=== PATIENT | female | born 1980 | race Two or more races ===

== ENCOUNTER 2024-06-19 07:58 | Inpatient (IN) | payer MEDICAID, OTHER ==
[~2024-06-19] VITALS: Ht 144.8 cm; Wt 57.6 kg
[2024-06-19 09:02] LABS: Urine Bacteria FEW /hpf (None Seen); Urine Blood Negative /uL (Negative); Urine Clarity Turbid (Clear); Urine Color Yellow (Yellow); Urine Mucus FEW (None Seen); Urine Protein, UAD 1+ (Negative); Urine Specific Gravity 1.021 (1.001-1.035); Urine Squamous Epithelial Cell MOD /hpf (<5); Urine Urobilinogen Normal (Negative); Urine WBC 20 /HPF (0-5); Urine pH 8.5 (5.0-9.0)
--- NOTE | 2024-06-19 10:12 | ED.PDOC ---
GI ASSESSMENT HPI Comments 43 y.o female presents to the ED for a chief complaint of left sided abdominal pain, nausea, vomiting and dizziness that started today. Patient reports using a weight loss injection yesterday for weight management. Patient reports abdominal pain is now radiating to her lower back and is intermittent with no alleviating factors. Patient denies any diarrhea, fever, chills, bleeding. Chief Complaint: Nausea/Vomiting Time Seen by MD: 09:34 Primary Care Provider: NONE Reviewed Notes: Nurses Notes, Medications, Allergies Allergies: Coded Allergies: NO KNOWN ALLERGIES (Unverified , 06/19/24) Information Source: Patient Mode of Arrival: Ambulatory Duration: Since onset Quality: Aching Vomitus: Hard Stool: Normal Severity: Moderate Recent: Other (weight loss injection ) Recent Hx of: None Pain Location: Diffuse Modifying Factors: Nothing Associated sign and symptoms: Nausea, Vomiting, Abdominal Pain Past Medical History PAST MEDICAL HISTORY: Denies Surgical History: Denies all surgeries BIOMETRIC SCREENER History: No Pertinent BIOMETRIC SCREENER History Family History Family History: Reviewed,noncontributory to illness Social History Smoker: Non-Smoker Alcohol: Denies ETOH Use Drugs: Denies Drug Use Lives In: Home Constitutional: denies: chills, diaphoresis, fatigue, fever, malaise, sweats, weakness, others EENTM: denies: blurred vision, double vision, ear bleeding, ear discharge, ear drainage, ear pain, ear ringing, eye pain, eye redness, hearing loss, mouth pain, mouth swelling, nasal discharge, nose bleeding, nose congestion, nose pain, photophobia, tearing, throat pain, throat swelling, voice changes, others Respiratory: denies: cough, hemoptysis, orthopnea, SOB at rest, shortness of breath, SOB with excertion, stridor, wheezing, others Cardiovascular: denies: chest pain, dizzy spells, diaphoresis, Dyspnea on exertion, edema, irregular heart beat, left arm pain, lightheadedness, palpitations, PND, syncope, others Gastrointestinal: reports: abdominal pain, nausea, vomiting; denies: abdomen distended, blood streaked bowels, constipated, diarrhea, dysphagia, difficulty swallowing, hematemesis, melena, poor appetite, poor fluid intake, rectal bleeding, rectal pain, others Genitourinary: denies: abnormal vagina bleeding, burning, dyspareunia, dysuria, flank pain, frequency, hematuria, incontinence, pain, , vagina discharge, urgency, others Neurological: reports: dizziness; denies: fainting, headache, left sided numbness, left sided weakness, numbness, paresthesia, pre-existing deficit, right sided numbness, right sided weakness, seizure, speech problems, tingling, tremors, weakness, others Musculoskeletal: reports: back pain; denies: gout, joint pain, joint swelling, muscle pain, muscle stiffness, neck pain, others Integumetry: denies: bruises, change in color, change in hair/nails, dryness, laceration, lesions, lumps, rash, wounds, others Allergic/Immunocompromised: denies: Difficulty Healing, Frequent Infections, Hives, Itching, others Hematologic/Lymphatic: denies: anemia, blood clots, easy bleeding, easy bruising, swollen glands, others Endocrine: denies: excessive hunger, excessive sweating, excessive thirst, excessive urination, flushing, intolerance to cold, intolerance to heat, unexplained weight gain, unexplained weight loss, others Psychiatric: denies: anxiety, bipolar disorder, depression, hopeless, panic disorder, schizophrenia, sleepless, suicidal, others All Other Systems: Reviewed and Negative Physical Exam General Appearance: Moderate Distress HEENT: Normal ENT Inspection, Pharynx Normal, TMs Normal Neck: Full Range of Motion, Non-Tender, Normal, Normal Inspection Respiratory: Chest Non-Tender, Lungs Clear, No Accessory Muscle Use, No Respiratory Distress, Normal Breath Sounds Cardiovascular: No Edema, No JVD, No Murmur, No Gallop, Normal Peripheral Pulses, Regular Rate/Rhythm Breast Exam: Deferred Gastrointestinal: No Organomegaly, Non Tender, No Pulsatile Mass, Normal Bowel Sounds, Soft Genitalia: Deferred Pelvic: Deferred Rectal: Deferred Extremities: No calf tenderness, Normal capillary refill, Normal inspection, Normal range of motion, Non-tender, No pedal edema Musculoskeletal : Apperance: Normal Neurologic: Alert, columnist II-XII nml as Tested, No Motor Deficits, Normal Affect, Normal Mood, No Sensory Deficits Cerebellar Function: Normal Reflexes: Normal Skin: Dry, Normal Color, Warm Peripheral Pulses: 3+ Radial (R), 3+ Radial (L) Lymphatic: No Adenopathy Was a procedure done? Was a procedure done?: No GI differential Dx Differential Diagnosis: Constipation, Diverticular disease, Esophagitis, Gastritis/PUD, Gastroenteritis, Inflammatory BD, Electrolyte Imbalance, Food Poisoning, Viral X-Ray, Labs, Meds, VS Vital Signs Date Time Temp Pulse Resp B/P (MAP) Pulse Ox O2 Delivery O2 Flow Rate FiO2 06/19/24 08:15 98.2 97 16 148/99 (115) 100 98.2 130/96 (107) Lab Test 06/19/24 10:25 06/19/24 08:45 Range/Units White Blood Count 10.8 4.4-10.8 10^3/uL Red Blood Count 5.50 H 4.0-5.20 10^6/uL Hemoglobin 16.0 12.2-16.2 g/dL Hematocrit 48.3 H 36.0-46.0 % Mean Corpuscular Volume 87.7 80.0-100.0 fL Mean Corpuscular Hemoglobin 29.0 28.0-32.0 pg Mean Corpuscular Hemoglobin Concent 33.1 32.0-36.0 g/dL Red Cell Distribution Width 13.6 11.8-14.3 % Platelet Count 380 140-450 10^3/uL Mean Platelet Volume 7.6 6.9-10.8 fL Neutrophils (%) (Auto) 73.2 37.0-80.0 % Lymphocytes (%) (Auto) 22.1 10.0-50.0 % Monocytes (%) (Auto) 4.1 0.0-12.0 % Eosinophils (%) (Auto) 0.2 0.0-7.0 % Basophils (%) (Auto) 0.4 0.0-2.0 % Neutrophils # (Auto) 7.9 1.6-8.6 10 ^3/uL Lymphocytes # (Auto) 2.4 0.4-5.4 10 ^3/uL Monocytes # (Auto) 0.4 0-1.3 10 ^3/uL Eosinophils # (Auto) 0 0-0.8 10 ^3/uL Basophils # (Auto) 0 0-0.2 10 ^3/uL Nucleated Red Blood Cells 0.1 % Sodium Level 136 136-145 mmol/L Potassium Level 4.0 3.5-5.1 mmol/L Chloride Level 102 98-107 mmol/L Carbon Dioxide Level 25 20-31 mmol/L Anion Gap 9 5-15 Blood Urea Nitrogen 7 L 9-23 mg/dL Creatinine 0.61 0.550-1.02 mg/dL Glomerular Filtration Rate Calc 114 >90 mL/min BUN/Creatinine Ratio 11.5 10.0-20.0 Serum Glucose 101 74-106 mg/dL Calcium Level 10.4 8.7-10.4 mg/dL Urine Color Yellow Yellow Urine Clarity Turbid H Clear Urine pH 8.5 5.0-9.0 Urine Specific [place] 1.021 1.001-1.035 Urine Protein 1+ H Negative Urine Ketones Negative Negative Urine Blood Negative Negative /uL Urine Nitrite Negative Negative Urine Bilirubin Negative Negative Urine Urobilinogen Normal Negative mg/dL Urine Leukocyte Esterase 3+ Negative /uL Urine RBC 10 0 - 4 /hpf Urine Microscopic WBC 20 H 0-5 /HPF Urine Squamous Epithelial Cells Mod <5 /hpf Urine Bacteria Few H None Seen /hpf Urine Mucus Few None Seen Urine Glucose Normal Normal mg/dL Current Medications Medications (Trade) Dose Ordered Sig/Dixon Route Start Time Stop Time Status Last Admin Sodium Chloride 1,000 ml @ 1,000 mls/hr Q1H ONCE IV 06/19/24 10:30 06/19/24 11:29 DC 06/19/24 10:58 Ondansetron HCl (Zofran) 4 mg ONCE ONCE IV 06/19/24 10:30 06/19/24 10:31 DC 06/19/24 10:58 Acetaminophen/ Hydrocodone Bitart ([place] 5/325MG Tab) 1 tab ONCE ONCE PO 06/19/24 13:15 06/19/24 13:16 DC 06/19/24 13:55 Patient alert. Complaining of nausea vomiting pain She does use weight loss medication. Vitals stable. Answering questions. Urinalysis shows UTI. Possible reaction to her medication. CT of the abdomen reviewed does not show any acute changes. WBC within normal limits. Hemoglobin within normal limits. Establish intravenous access. Was given fluids. Was given Zofran. Was given Rocephin. Explained to the patient. Continue monitoring. Time of 1ST Reevaluation: 10:00 Reevaluation 1ST: Unchanged Patient Education/Counseling: Diagnosis, Treatment, Prognosis Family Education/Counseling: No Family Present Departure 1 Departure Time of Disposition: 17:31 Impression: Primary Impression: Sepsis due to urinary tract infection Additional Impression: Gastroenteritis Disposition: 09 ADMITTED INPATIENT Admit to: Med Surg Condition: Guarded Critical Care Note Critical Care Time?: No Stability Stability form required: No I personally scribed for MILO RYDER [facility] on 06/19/24 at 10:12. Electronically submitted by Rebecca Juarez ([facility]). MILO RYDER MD Jun 19, 2024 10:12
[2024-06-19 10:42] LABS: Basophils # (auto) 0 10 ^3/uL (0-0.2); Basophils % (auto) 0.4 % (0.0-2.0); Eosinophils # (auto) 0 10 ^3/uL (0-0.8); Eosinophils % (auto) 0.2 % (0.0-7.0); Hematocrit 48.3 % (36.0-46.0); Lymphocytes # (auto) 2.4 10 ^3/uL (0.4-5.4); Lymphocytes % (auto) 22.1 % (10.0-50.0); Mean Corpuscular Hgb Conc. 33.1 g/dL (32.0-36.0); Mean Corpuscular Volume 87.7 fL (80.0-100.0); Monocytes # (auto) 0.4 10 ^3/uL (0-1.3); Monocytes % (auto) 4.1 % (0.0-12.0); Neutrophils # (auto) 7.9 10 ^3/uL (1.6-8.6); Neutrophils % (auto) 73.2 % (37.0-80.0); Nucleated Red Blood Cells % 0.1 %; Platelet Count (auto) 380 10^3/uL (140-450); Red Cell Distribution Width 13.6 % (11.8-14.3); White Blood Cell 10.8 10^3/uL (4.4-10.8)
[2024-06-19 10:53] LABS: Chloride 102 mmol/L (98-107); Sodium 136 mmol/L (136-145)
[2024-06-19 10:54] LABS: Anion Gap 9 (5-15); Carbon Dioxide 25 mmol/L (20-31)
[2024-06-19] MEDS: ONDANSETRON HCL 4 MG/2 ML VIAL IV ONE (10:58)
[2024-06-19] MEDS: SODIUM CHLORIDE 0.9% 1,000 ML IV ONE (10:58)
[2024-06-19 10:59] LABS: BUN/Creatinine Ratio 11.5 (10.0-20.0); Glucose 101 mg/dL (74-106)
--- NOTE | 2024-06-19 11:16 | DVH ---
CT CT AB PEL WO CON-NO ORAL OR IV INDICATION: stone : 43 old Female stone EXAM DATE: 06/19/2024 10:43 AM COMPARISON: None RADIATION DOSE: CTDIvol: 5.43 mGy, DLP: 269.17 mGy*cm PROCEDURE: Helical CT images were obtained of the abdomen and pelvis without IV contrast Sagittal and coronal reconstructions are provided. ORAL CONTRAST: None. ADDITIONAL IMAGES / REFORMATS: None All C T scans at this medical facility are performed using dose modulation techniques as appropriate to a p erformed exam including the following: Automated exposure control was utilized; adjustment of the MA and/or KV according to patient size; and use of iterative reconstruction technique. FINDINGS: LUNG BASE: Normal. LIVER: Low in attenuation GALLBLADDER AND BILIARY TREE: No calcified gallstones. Normal caliber wall. No intra- or extrahepatic biliary ductal dilation. PANCREAS: Normal. SPLEEN: Normal. BOWEL: Normal. Normal appendix. ADRENALS: Normal. KIDNEYS AND URETER: Normal. BLADDER: Normal. REPRODUCTIVE ORGANS: Normal. LYMPH NODES:No lymphadenopathy. PERITONEUM: No ascites or free air. No other fluid collection. VESSELS: Scattered atherosclerotic calcifications are noted. RETROPERITONEUM: Normal. ABDOMINAL WALL: Normal. BONES: Scattered osseous degenerative changes are noted. IMPRESSION: No acute intraabdominal abnormality. No kidney stones are seen. Hepatic steatosis.
[2024-06-19 11:50] LABS: Blood Urea Nitrogen 7 mg/dL (9-23); Calcium 10.4 mg/dL (8.7-10.4)
[2024-06-19] MEDS: HYDROcodone-ACET 5/325MG TAB PO ONE (13:55)
[2024-06-19] MEDS ORDERED: HYDROcodone-ACET 5/325MG TAB PO PRN (15:15)
[2024-06-19] MEDS ORDERED: ACETAMINOPHEN 325 MG TAB PO PRN (15:15)
[2024-06-19] MEDS ORDERED: DOCUSATE SOD 100 MG CAP PO PRN (15:15)
--- NOTE | 2024-06-19 15:16 | DVHHP2 ---
Admitting Diagnosis: Abdominal pain History of Present Illness 43 y.o female presents to the ED for a chief complaint of left sided abdominal pain, nausea, vomiting and dizziness that started today. Patient reports using a weight loss injection yesterday for weight management. Patient reports abdominal pain is now radiating to her lower back and is intermittent with no alleviating factors. Patient denies any diarrhea, fever, chills, bleeding. PAST MEDICAL HISTORY: Denies Surgical History: Denies all surgeries HAND BINDER STRIPPER History: No Pertinent HAND BINDER STRIPPER History Family History: Reviewed,noncontributory to illness Social History Smoker: Non-Smoker Alcohol: Denies ETOH Use Drugs: Denies Drug Use Lives In: Home Allergies: Coded Allergies: NO KNOWN ALLERGIES (Unverified , 06/19/24) Vital Signs Vital Signs Date Time Temp Pulse Resp B/P (MAP) Pulse Ox O2 Delivery O2 Flow Rate FiO2 06/19/24 08:15 98.2 97 16 148/99 (115) 100 98.2 130/96 (107) Physical Exam 44 years old woman, well nourished well developed. Mild distress HEENT-atraumatic, normocephalic Heart-regular rate and rhythm Lungs clear to auscultate bilaterally Abdomen soft, nontender nondistended Musculoskeletal-no edema cyanosis Neuro-AO x3, no focal deficits Results Labs Test 06/19/24 10:25 06/19/24 08:45 Range/Units White Blood Count 10.8 4.4-10.8 10^3/uL Red Blood Count 5.50 H 4.0-5.20 10^6/uL Hemoglobin 16.0 12.2-16.2 g/dL Hematocrit 48.3 H 36.0-46.0 % Mean Corpuscular Volume 87.7 80.0-100.0 fL Mean Corpuscular Hemoglobin 29.0 28.0-32.0 pg Mean Corpuscular Hemoglobin Concent 33.1 32.0-36.0 g/dL Red Cell Distribution Width 13.6 11.8-14.3 % Platelet Count 380 140-450 10^3/uL Mean Platelet Volume 7.6 6.9-10.8 fL Neutrophils (%) (Auto) 73.2 37.0-80.0 % Lymphocytes (%) (Auto) 22.1 10.0-50.0 % Monocytes (%) (Auto) 4.1 0.0-12.0 % Eosinophils (%) (Auto) 0.2 0.0-7.0 % Basophils (%) (Auto) 0.4 0.0-2.0 % Neutrophils # (Auto) 7.9 1.6-8.6 10 ^3/uL Lymphocytes # (Auto) 2.4 0.4-5.4 10 ^3/uL Monocytes # (Auto) 0.4 0-1.3 10 ^3/uL Eosinophils # (Auto) 0 0-0.8 10 ^3/uL Basophils # (Auto) 0 0-0.2 10 ^3/uL Nucleated Red Blood Cells 0.1 % Sodium Level 136 136-145 mmol/L Potassium Level 4.0 3.5-5.1 mmol/L Chloride Level 102 98-107 mmol/L Carbon Dioxide Level 25 20-31 mmol/L Anion Gap 9 5-15 Blood Urea Nitrogen 7 L 9-23 mg/dL Creatinine 0.61 0.550-1.02 mg/dL Glomerular Filtration Rate Calc 114 >90 mL/min BUN/Creatinine Ratio 11.5 10.0-20.0 Serum Glucose 101 74-106 mg/dL Calcium Level 10.4 8.7-10.4 mg/dL Urine Color Yellow Yellow Urine Clarity Turbid H Clear Urine pH 8.5 5.0-9.0 Urine Specific [place] 1.021 1.001-1.035 Urine Protein 1+ H Negative Urine Ketones Negative Negative Urine Blood Negative Negative /uL Urine Nitrite Negative Negative Urine Bilirubin Negative Negative Urine Urobilinogen Normal Negative mg/dL Urine Leukocyte Esterase 3+ Negative /uL Urine RBC 10 0 - 4 /hpf Urine Microscopic WBC 20 H 0-5 /HPF Urine Squamous Epithelial Cells Mod <5 /hpf Urine Bacteria Few H None Seen /hpf Urine Mucus Few None Seen Urine Glucose Normal Normal mg/dL Primary Diagnosis Abdominal pain likely due to semaglutide use Plan She has been using her semaglutide injection and developed abdominal pain that is radiating to the back Check lipase to assess for acute pancreatitis IV fluids Diabetic Pain control Lovenox for DVT prophylaxis No GI prophylaxis needed Regular diet Full code Plan discussed with: Patient Problems List: (1) Abdominal pain Date of Service: Jun 19, 2024 Billing Provider: DENIS RAMESH MD Common Visit Codes: [id number] INP/OBS CARE (MOD) DENIS RAMESH MD Jun 19, 2024 15:16
[2024-06-19] MEDS: ONDANSETRON ODT 4 MG TAB PO ONE (15:31)
[2024-06-19] MEDS: LACTATED RINGER'S 1,000 ML IV ONE (17:19)
[2024-06-19] MEDS: cefTRIAXone 1GM/50ML D5W 50 ML IV ONE ×2 (17:45→21:25)
[2024-06-19] MEDS: SODIUM CHLOR 0.9% PF (SALINE LOCK) 10ML VIAL/SYR IV SCH (21:25)
[2024-06-19 21:28] VITALS: PULSE 78; RESP 20; O2SAT 97
[2024-06-20] VITALS (7 sets, daily range): BP systolic 112–132; BP diastolic 71–93; PULSE 83–91; RESP 15–17; TEMP 97.6–98.7; O2SAT 97–99
[2024-06-20] MEDS: ONDANSETRON HCL 4 MG/2 ML VIAL IV PRN (03:51)
[2024-06-20] MEDS: PHENAZOPYRIDINE HCL 100 MG TAB PO ONE (03:51)
[2024-06-20 06:42] LABS: Basophils # (auto) 0 10 ^3/uL (0-0.2); Basophils % (auto) 0.4 % (0.0-2.0); Eosinophils # (auto) 0.1 10 ^3/uL (0-0.8); Eosinophils % (auto) 1.6 % (0.0-7.0); Lymphocytes # (auto) 3.6 10 ^3/uL (0.4-5.4); Lymphocytes % (auto) 38.1 % (10.0-50.0); Mean Corpuscular Hemoglobin 29.9 pg (28.0-32.0); Mean Corpuscular Hgb Conc. 34.1 g/dL (32.0-36.0); Mean Corpuscular Volume 87.8 fL (80.0-100.0); Monocytes # (auto) 0.8 10 ^3/uL (0-1.3); Monocytes % (auto) 8.5 % (0.0-12.0); Neutrophils # (auto) 4.9 10 ^3/uL (1.6-8.6); Neutrophils % (auto) 51.4 % (37.0-80.0); Nucleated Red Blood Cells % 0.1 %; Platelet Count (auto) 322 10^3/uL (140-450); Red Blood Cells 4.67 10^6/uL (4.0-5.20); Red Cell Distribution Width 13.6 % (11.8-14.3); White Blood Cell 9.5 10^3/uL (4.4-10.8)
[2024-06-20 06:56] LABS: Alanine Aminotransferase 21 U/L (7-40); Albumin 4.1 g/dL (3.2-4.8); Alkaline Phosphatase 49 U/L (46-116); Anion Gap 9 (5-15); Aspartate Aminotransferase 15 U/L (13-40); BUN/Creatinine Ratio 12.5 (10.0-20.0); Bilirubin, Total 0.5 mg/dL (0.2-1.0); Calcium 9.1 mg/dL (8.7-10.4); Carbon Dioxide 24 mmol/L (20-31); Chloride 105 mmol/L (98-107); Glucose 91 mg/dL (74-106); Sodium 138 mmol/L (136-145)
[2024-06-20 06:58] LABS: Blood Urea Nitrogen 7 mg/dL (9-23); Potassium 3.4 mmol/L (3.5-5.1)
[2024-06-20] MEDS: cefTRIAXone 1GM/50ML D5W 50 ML IV SCH (09:16)
[2024-06-20] MEDS: ENOXAPARIN SOD 40 MG/0.4 ML SYRINGE SC SCH (09:22)
[2024-06-20 14:07] LABS: Opiate Scree,Urine Neg (NEGATIVE)
[2024-06-20] MEDS ORDERED: CEPH250C PO (14:07)
[2024-06-20] MEDS ORDERED: PANT40T PO ×2 (14:07→14:10)
[2024-06-20] MEDS ORDERED: ZOFR4T PO ×2 (14:07→14:10)
[2024-06-20] MEDS ORDERED: IBUP-1454 PO ×2 (14:07→14:10)
[2024-06-20 14:08] LABS: Amphetamine Screen, Urine Neg (NEGATIVE); Barbiturate Scree,Urine Neg (NEGATIVE); Benzodiazephine Screen, Urine Neg (NEGATIVE); Cannabinoid Screen, Urine Neg (NEGATIVE); Cocaine Screen, Urine Neg (NEGATIVE); Phencyclidine Screen, Urine Neg (NEGATIVE)
[2024-06-20] MEDS ORDERED: CIPR500T4 PO (14:19)
--- NOTE | 2024-06-20 15:23 | DVHDSRES ---
Discharge Summary Date of Admission Resident Creating Document: LAURENCE GARCIA DT Jun 19, 2024 at 15:13 Date of Discharge: Jun 20, 2024 Admitting Diagnosis Intractable abdominal pain and nausea and vomiting likely due to acute complicated cystitis Labs/Diagnostic Data: Laboratory Results Test 06/20/24 13:40 06/20/24 13:03 06/20/24 06:04 06/19/24 08:45 Urine Opiates Screen Neg (NEGATIVE) Urine Fentanyl Screen Neg (NEGATIVE) Urine Barbiturates Screen Neg (NEGATIVE) Urine Phencyclidine Screen Neg (NEGATIVE) Urine Amphetamines Screen Neg (NEGATIVE) Urine Benzodiazepines Screen Neg (NEGATIVE) Urine Cocaine Screen Neg (NEGATIVE) Urine Cannabinoids Screen Neg (NEGATIVE) Lactic Acid Level 0.8 mmol/L (0.4-2.0) White Blood Count 9.5 10^3/uL (4.4-10.8) Red Blood Count 4.67 10^6/uL (4.0-5.20) Hemoglobin 14.0 g/dL (12.2-16.2) Hematocrit 41.0 % (36.0-46.0) Mean Corpuscular Volume 87.8 fL (80.0-100.0) Mean Corpuscular Hemoglobin 29.9 pg (28.0-32.0) Mean Corpuscular Hemoglobin Concent 34.1 g/dL (32.0-36.0) Red Cell Distribution Width 13.6 % (11.8-14.3) Platelet Count 322 10^3/uL (140-450) Mean Platelet Volume 7.6 fL (6.9-10.8) Neutrophils (%) (Auto) 51.4 % (37.0-80.0) Lymphocytes (%) (Auto) 38.1 % (10.0-50.0) Monocytes (%) (Auto) 8.5 % (0.0-12.0) Eosinophils (%) (Auto) 1.6 % (0.0-7.0) Basophils (%) (Auto) 0.4 % (0.0-2.0) Neutrophils # (Auto) 4.9 10 ^3/uL (1.6-8.6) Lymphocytes # (Auto) 3.6 10 ^3/uL (0.4-5.4) Monocytes # (Auto) 0.8 10 ^3/uL (0-1.3) Eosinophils # (Auto) 0.1 10 ^3/uL (0-0.8) Basophils # (Auto) 0 10 ^3/uL (0-0.2) Nucleated Red Blood Cells 0.1 % Sodium Level 138 mmol/L (136-145) Potassium Level 3.4 mmol/L (3.5-5.1) Chloride Level 105 mmol/L (98-107) Carbon Dioxide Level 24 mmol/L (20-31) Anion Gap 9 (5-15) Blood Urea Nitrogen 7 mg/dL (9-23) Creatinine 0.56 mg/dL (0.550-1.02) Glomerular Filtration Rate Calc 117 mL/min (>90) BUN/Creatinine Ratio 12.5 (10.0-20.0) Serum Glucose 91 mg/dL (74-106) Hemoglobin A1c 5.2 % A1C (<5.7) Calcium Level 9.1 mg/dL (8.7-10.4) Magnesium Level 2.2 mg/dL (1.6-2.6) Total Bilirubin 0.5 mg/dL (0.2-1.0) Aspartate Amino Transferase (AST) 15 U/L (13-40) Alanine Aminotransferase (ALT) 21 U/L (7-40) Alkaline Phosphatase 49 U/L (46-116) Total Protein 7.0 g/dL (5.7-8.2) Albumin 4.1 g/dL (3.2-4.8) Thyroid Stimulating Hormone (TSH) 3.16 uIU/mL (0.55-4.78) Plasma/Serum Blood Alcohol 3.6 mg/dL (<10) Urine Color Yellow (Yellow) Urine Clarity Turbid (Clear) Urine pH 8.5 (5.0-9.0) Urine Specific Lane 1.021 (1.001-1.035) Urine Protein 1+ (Negative) Urine Ketones Negative (Negative) Urine Blood Negative /uL (Negative) Urine Nitrite Negative (Negative) Urine Bilirubin Negative (Negative) Urine Urobilinogen Normal mg/dL (Negative) Urine Leukocyte Esterase 3+ /uL (Negative) Urine RBC 10 /hpf (0 - 4) Urine Microscopic WBC 20 /HPF (0-5) Urine Squamous Epithelial Cells Mod /hpf (<5) Urine Bacteria Few /hpf (None Seen) Urine Mucus Few (None Seen) Urine Glucose Normal mg/dL (Normal) Other Laboratory Tests 06/20/24 06:04 Brief Hx & Hospital Course: HPI- Patient is 43 years old female with no significant past medical history came with a complaint of left-sided abdominal pain. As per patient pain started on Thursday, gradual onset, 8/10, radiating to the back, in the left lower abdomen and also left midabdomen, no aggravating or relieving factor, patient also endorsed nausea and vomiting mostly watery and greenish fluid almost 14 15 times. On further inquiry patient also reported having dysuria, increased frequency and urgency for last couple of days. Patient also endorsed mild vaginal yellowish discharge for last couple of months. Denied any fever, constipation or acute shortness of breath or chest pain or dysarthria or change in vision or joint pain or swelling. Significant lab report revealed mild hypokalemia with potassium 3.4. Urinalysis is significant for UTI with leukocyte esterase 3+, WBC 20, bacteria few. UDS negative, plasma alcohol 3.6. CT abdomen- No acute intraabdominal abnormality. No kidney stones are seen. Hospital course-Patient is 43 years old female with no significant past medical history came with a complaint of left-sided abdominal pain. As per patient pain started on Thursday, gradual onset, 8/10, radiating to the back, in the left lower abdomen and also left midabdomen, no aggravating or relieving factor, patient also endorsed nausea and vomiting mostly watery and greenish fluid almost 14 15 times. On further inquiry patient also reported having dysuria, increased frequency and urgency for last couple of days. Patient also endorsed mild vaginal yellowish discharge for last couple of month Significant lab report revealed mild hypokalemia with potassium 3.4. Urinalysis is significant for UTI with leukocyte esterase 3+, WBC 20, bacteria few. UDS negative, plasma alcohol 3.6. CT abdomen- No acute intraabdominal abnormality. No kidney stones are seen.. Patient was treated conservatively with IV fluid and IV antibiotic. Patient's symptoms improved. Patient was hemodynamically stable. Pending urine culture and and vaginal swab for gonorrhea and chlamydia. Patient was advised to follow up with the primary care physician with the urine culture sensitivity and vaginal swab lab report. Patient was discharged with ciprofloxacin 500 mg p.o. daily for 7 days with some other medications. Patient was hemodynamically stable on discharge. Patient's meds were sent to the pharmacy electronically. Assessment Acute complicated cystitis with the endocrine damage Intractable nausea and vomiting and abdominal pain likely due to acute complicated cystitis Mild hypokalemia Suspected PID Discharge plan Continue ciprofloxacin 500 mg p.o. daily Continue Zofran 4 mg q.8h PRN for 5 days Continue PRN ibuprofen as prescribed Continue pantoprazole 40 mg daily prescribed Please follow up with the primary care physician with the urine culture sensitivity and vaginal of for chlamydia and gonococcal test report in 1 week Please avoid dehydration Operations or Procedures [place] [id number] Ph: [phone] DIAGNOSTIC IMAGING Diagnostic Imaging Report : [id number] Signed PATIENT: SERGEY PITTMANT: [id number] UNIT: [id number] : 1980 LOC: ER ROOM / BED: / AGE / SEX: 43 / F ADM STATUS: REG ER SERVICE [id number] ORDERING PHYSICIAN: MILO RYDER MD PROCEDURE(s): ABPL - CT AB PEL WO CON-NO ORAL OR IV REASON: stone ORDER NUMBER(s): [id number], ACCESSION NUMBER(s): [id number] CT CT AB PEL WO CON-NO ORAL OR IV INDICATION: stone : 43 old Female stone EXAM DATE: 06/19/2024 10:43 AM COMPARISON: None RADIATION DOSE: CTDIvol: 5.43 mGy, DLP: 269.17 mGy*cm PROCEDURE: Helical CT images were obtained of the abdomen and pelvis without IV contrast Sagittal and coronal reconstructions are provided. ORAL CONTRAST: None. ADDITIONAL IMAGES / REFORMATS: None All CT scans at this medical facility are performed using dose modulation techniques as appropriate to a performed exam including the following: Automated exposure control was utilized; adjustment of the MA and/or KV according to patient size; and use of iterative reconstruction technique. FINDINGS: LUNG BASE: Normal. LIVER: Low in attenuation GALLBLADDER AND BILIARY TREE: No calcified gallstones. Normal caliber wall. No intra- or extrahepatic biliary ductal dilation. PANCREAS: Normal. SPLEEN: Normal. BOWEL: Normal. Normal appendix. ADRENALS: Normal. KIDNEYS AND URETER: Normal. BLADDER: Normal. REPRODUCTIVE ORGANS: Normal. LYMPH NODES:No lymphadenopathy. PERITONEUM: No ascites or free air. No other fluid collection. VESSELS: Scattered atherosclerotic calcifications are noted. RETROPERITONEUM: Normal. ABDOMINAL WALL: Normal. BONES: Scattered osseous degenerative changes are noted. IMPRESSION: No acute intraabdominal abnormality. No kidney stones are seen. Hepatic steatosis. ATED BY: EDVIN PINA MD DICTATED DATE/TIME: 06/19/24 111 SIGNED BY: EDVIN PINA MD SIGNED DATE/TIME: 06/19/24 1114 CC: Condition at Discharge: Stable Final Diagnosis/Problems List Acute complicated cystitis with the endocrine damage Intractable nausea and vomiting and abdominal pain likely due to acute complicated cystitis Mild hypokalemia Suspected PID Discharge Disposition: Home Discharge Instruct/Medications Follow Up/Referral: Please follow up with the primary care physician with the urine culture sensitivity and vaginal of for chlamydia and gonococcal test report in 1 week Please avoid dehydration Medications: Continue ciprofloxacin 500 mg p.o. daily Continue Zofran 4 mg q.8h PRN for 5 days Continue PRN ibuprofen as prescribed Continue pantoprazole 40 mg daily prescribed Please follow up with the primary care physician with the urine culture sensitivity and vaginal of for chlamydia and gonococcal test report in 1 week Please avoid dehydration Discharge Statement: "Patient was advised to return to the ER or call 911 if any headaches, dizziness, shortness of breath, chest pain, abdominal pain, bleeding, fevers, or worsening of medical condition. Patient was counseled about treatment plan, medications, possible side effects, patientverbalized understanding. All questions were answered to the best of my ability. This discharge took greater then 30 minutes in planning, reviewing documentation, counseling the patient, and discussing with other team members." ASSESSMENT ASSESSMENT Assessment ENRIQUE ZURITA RESIDENT Jun 20, 2024 15:23
[2024-06-21 13:07] LABS: Chlamydia Trachomatis, NAA Negative (Negative); Neisseria gonorrhoeae, NAA Negative (Negative)
== END 2024-06-20 16:35 | disposition home or self-care (01) | DRG 463 ==
LOC: ER 07:58 → OVERFLOW 15:13
PROVIDERS: ADMIT Student in an Organized Health Care Education/Training Program; ATTEND Student in an Organized Health Care Education/Training Program
DX: N30.00 Acute cystitis without hematuria (principal); E11.9 Type 2 diabetes mellitus without complications; E87.6 Hypokalemia; N73.9 Female pelvic inflammatory disease, unspecified; Z79.899 Other long term (current) drug therapy
CPT/HCPCS: 36415; 74176; 80048; 80053; 80307; 80320; 81001; 83036; 83605; 83735; 84443; 85025; 87070; 87086; 96361; 96374; G0378; J2405; Q0162